=== PATIENT | male | born 1955 | race Caucasian/White ===

== ENCOUNTER 2019-11-21 11:29 | Inpatient (IN) | payer BC ==
[~2019-11-21] VITALS: Ht 205.7 cm; Wt 68.0 kg
[2019-11-21 12:13] LABS: BASOPHILS # (AUTO) 0.1 X10'3 (0-0.2); BASOPHILS % (AUTO) 0.3 % (0-1); EOSINOPHILS % (AUTO) 0 % (0-6); HEMATOCRIT 43.4 % (42.0-52.0); HEMOGLOBIN 14.5 g/dl (14.0-17.9); LYMPHOCYTES # (AUTO) 0.7 X10'3 (1.1-4.8); LYMPHOCYTES % (AUTO) 2.9 % (21-51); MEAN CORPUSCULAR HEMOGLOBIN 32.2 PG (27.0-31.0); MEAN CORPUSCULAR HGB CONC 33.5 g/dL (33.0-36.5); MEAN CORPUSCULAR VOLUME 96.3 FL (78-98); MEAN PLATELET VOLUME 8.3 FL (7.4-10.4); MONOCYTES # (AUTO) 0.6 X10'3 (0-0.9); MONOCYTES % (AUTO) 2.5 % (2-12); NEUTROPHILS # (AUTO) 21.2 X10'3 (1.8-7.7); NEUTROPHILS % (AUTO) 94.3 % (42-75); PLATELET COUNT 308 X10'3 (140-440); RED BLOOD COUNT 4.51 X10'6 (4.70-6.10); RED CELL DISTRIBUTION WIDTH 12.7 % (11.5-14.5); WHITE BLOOD COUNT 22.5 X10'3 (4.5-11.0)
[2019-11-21 12:29] LABS: ALANINE AMINOTRANSFERASE 22 U/L (12-78); ALBUMIN 3.5 G/DL (3.4-5.0); ALBUMIN/GLOBULIN RATIO 0.8 (1.1-1.5); ALKALINE PHOSPHATASE 79 IU/L (46-116); ANION GAP 11 (8-16); ASPARTATE AMINO TRANSFERASE 15 U/L (10-37); BILIRUBIN,TOTAL 2.2 MG/DL (0.1-1.0); BLOOD UREA NITROGEN 21 MG/DL (7-18); BUN/CREATININE RATIO 18.8 (5.4-32.0); CALCIUM 9.9 MG/DL (8.5-10.1); CHLORIDE 100 MMOL/L (99-107); CREATININE 1.12 MG/DL (0.60-1.10); GLUCOSE 147 MG/DL (70-104); LIPASE 138 U/L (73-393); POTASSIUM 3.7 MMOL/L (3.5-5.1); SODIUM 137 MMOL/L (135-145); TOTAL CARBON DIOXIDE 26.5 MMOL/L (24-32); eGFR 66 ML/MIN
[2019-11-21] MEDS ORDERED: metroNIDAZOLE-Flagyl 500mg/NS 100 ML IV STA (12:49)
[2019-11-21] MEDS ORDERED: CefTRIAXone 2gm/D5W 50ml 50 ML IV ONE (12:50)
[2019-11-21] MEDS ORDERED: normal saline 1000ML IV soln IVB ONE (12:50)
[2019-11-21] MEDS ORDERED: iohexol 300mg/ml 100ml inj. ONE (13:06)
[2019-11-21 13:54] LABS: CLARITY,URINE SLIGHTLY CLOUDY (Clear); COLOR,URINE AMBER (Yellow); UA COLLECTION TYPE VOIDED
[2019-11-21 13:57] LABS: BACTERIA,URINE 2+ /HPF (Neg); MUCUS STRANDS MODERATE /LPF (Neg); RBC,URINE 0-2 /HPF (0-2); SQUAMOUS EPITHELIAL CELL,UR FEW /LPF (FEW)
[2019-11-21] MEDS ORDERED: NO HOME MEDS (14:05)
[2019-11-21] MEDS ORDERED: LIDOcaine 2% 10ml TOPICAL JELLY (Urojet) MM ONE (14:25)
[2019-11-21] MEDS: normal saline 1000ml 1,000 ML IV SCH ×2 (14:41→23:36)
--- NOTE | 2019-11-21 14:42 | NUR ---
Patient requested to speak to provider prior to NG tube insertion per order, MARIA DEL CARMEN Hobson made aware.
[2019-11-21] MEDS ORDERED: morphine 2 MG/ML inj. syringe IV PRN (14:45)
[2019-11-21] MEDS ORDERED: potassium CL 10mEq/100ml bag 100 ML IV PRN ×2 (14:45)
[2019-11-21] MEDS ORDERED: potassium Cl 20 mEq SR tablet PO PRN ×2 (14:45)
[2019-11-21] MEDS ORDERED: magnesium 2GM in 50ml NS 50 ML IV PRN (14:45)
[2019-11-21] MEDS ORDERED: magnesium 4gm in 100ml NS 100 ML IV PRN (14:45)
[2019-11-21] MEDS ORDERED: ondansetron/PF 4mg/2ml inj IV PRN (14:45)
[2019-11-21] MEDS ORDERED: magnesium Cl slow-release 64mg tablet PO PRN (14:45)
--- NOTE | 2019-11-21 16:30 | NUR ---
Patient in room [facility]. I have received report from [place] MARTEL and had the opportunity to ask questions and assume patient care.
[2019-11-21 16:55] VITALS: BP 128/85
[2019-11-21] MEDS ORDERED: LORazepam 2 mg/ml vial IV PRN (17:30)
--- NOTE | 2019-11-21 18:46 | NUR ---
Problems reprioritized. Patient report given, questions answered & plan of care reviewed with Keysha MARTEL.
[2019-11-21 20:00] VITALS: BP 127/84
[2019-11-21] MEDS: K and/or MAG REPLACEMENT MC SCH (20:00)
[2019-11-21] MEDS: diatr meglu/diatrizoate 30ml oral sol.-(3 dose) bottle PO SCH (22:20)
--- NOTE | 2019-11-21 23:39 | NUR ---
PO contrast started tonight @2220. NG was turned off for at least 1 hr. Patient did well no nausea. He stated beginning of shift he passed gas and had some liquid stool in the bathroom. Will continue with care.
[2019-11-22] VITALS (16 sets, daily range): BP systolic 106–149; BP diastolic 51–91
[2019-11-22 06:07] LABS: BASOPHILS % (AUTO) 0.2 % (0-1); EOSINOPHILS % (AUTO) 0.1 % (0-6); HEMATOCRIT 38.8 % (42.0-52.0); HEMOGLOBIN 12.9 g/dl (14.0-17.9); LYMPHOCYTES # (AUTO) 0.9 X10'3 (1.1-4.8); LYMPHOCYTES % (AUTO) 7.1 % (21-51); MEAN CORPUSCULAR HEMOGLOBIN 32.6 PG (27.0-31.0); MEAN CORPUSCULAR HGB CONC 33.4 g/dL (33.0-36.5); MEAN CORPUSCULAR VOLUME 97.6 FL (78-98); MEAN PLATELET VOLUME 8.8 FL (7.4-10.4); MONOCYTES # (AUTO) 0.5 X10'3 (0-0.9); MONOCYTES % (AUTO) 4.2 % (2-12); NEUTROPHILS # (AUTO) 11.2 X10'3 (1.8-7.7); NEUTROPHILS % (AUTO) 88.4 % (42-75); PLATELET COUNT 249 X10'3 (140-440); RED BLOOD COUNT 3.97 X10'6 (4.70-6.10); WHITE BLOOD COUNT 12.7 X10'3 (4.5-11.0)
[2019-11-22 06:13] LABS: ALBUMIN 2.7 G/DL (3.4-5.0); ANION GAP 6 (8-16); BLOOD UREA NITROGEN 19 MG/DL (7-18); BUN/CREATININE RATIO 21.6 (5.4-32.0); CALCIUM 8.4 MG/DL (8.5-10.1); CHLORIDE 105 MMOL/L (99-107); CREATININE 0.88 MG/DL (0.60-1.10); GLUCOSE 100 MG/DL (70-104); MAGNESIUM 2.1 MG/DL (1.5-2.4); POTASSIUM 3.6 MMOL/L (3.5-5.1); SODIUM 140 MMOL/L (135-145); TOTAL CARBON DIOXIDE 28.7 MMOL/L (24-32); eGFR 87 ML/MIN
--- NOTE | 2019-11-22 06:32 | NUR ---
Problems reprioritized. Patient report given, questions answered & plan of care reviewed with Lenin RN.
[2019-11-22] MEDS: diatr meglu/diatrizoate 30ml oral sol.-(3 dose) bottle PO SCH ×2 (07:29→10:10)
[2019-11-22] MEDS: K and/or MAG REPLACEMENT MC SCH ×2 (08:00→20:25)
[2019-11-22] MEDS: normal saline 1000ml 1,000 ML IV SCH ×2 (09:28→20:13)
--- NOTE | 2019-11-22 16:12 | NUR ---
Nutrition consult received re: healthy diet to decrease problem of bowel obstruction. Attempted bedside visit however patient prepping for surgery today for exploratory lap and possible bowel resection. Will visit another time as able prior to patient's discharge. Addendum: 11/22/19 at [address] Amended: Links added.
[2019-11-22 17:03] LABS: PARTIAL THROMBOPLASTIN TIME 28 SECONDS (22-32)
[2019-11-22] MEDS ORDERED: sevoflurane 250ml liquid IH ONE (17:15)
[2019-11-22] MEDS ORDERED: midazolam 2 mg/2 ml injection ONE (17:21)
[2019-11-22] MEDS ORDERED: fentaNYL /PF 50mcg/ml 5ml ampule ONE (17:22)
[2019-11-22] MEDS ORDERED: LIDOcaine 2% (20mg/ml) 5ml vial ONE (17:45)
[2019-11-22] MEDS ORDERED: propofol inj 20 ML IV ONE (17:45)
[2019-11-22] MEDS ORDERED: dexamethasone sod phosphate 4mg/ml inj. ONE (17:45)
[2019-11-22] MEDS ORDERED: ceFOXitin 1000 MG inj ONE ×2 (17:45)
[2019-11-22] MEDS ORDERED: ondansetron/PF 4mg/2ml inj ONE (17:45)
[2019-11-22] MEDS ORDERED: rocuronium 10mg/ml inj IV ONE (17:45)
[2019-11-22] MEDS ORDERED: BUPIVACAINE liposomal/PF 13.3 MG/ML vial IM ONE (17:48)
[2019-11-22] MEDS ORDERED: clindamycin phosphate 150mg/ml inj. ONE (17:48)
[2019-11-22] MEDS ORDERED: ringers solution, lacted 1,000 ML IV SCH (17:48)
[2019-11-22] MEDS ORDERED: gentamicin 40 MG/1 ML inj ONE (17:48)
[2019-11-22] MEDS ORDERED: BUPIVAcaine/PF 2.5mg/ml (0.25%) 10ml vial ONE (17:48)
[2019-11-22] MEDS ORDERED: famotidine/PF 10 mg/ml inj IV ONE (17:48)
[2019-11-22] MEDS ORDERED: ondansetron/PF 4mg/2ml inj IV PRN (17:50)
[2019-11-22] MEDS ORDERED: acetaminophen 1,000mg/100ml IV 100 ML IV PRN (17:50)
[2019-11-22] MEDS ORDERED: morphine 2 MG/ML inj. syringe IV PRN (17:50)
[2019-11-22] MEDS ORDERED: meperidine/PF 25mg/ml syringe IV PRN ×2 (17:50)
[2019-11-22] MEDS ORDERED: proCHLORperazine 10 MG/2 ml inj IV PRN (17:50)
[2019-11-22] MEDS ORDERED: morphine 4 MG/ML inj SYRINge IV PRN (17:50)
[2019-11-22] MEDS ORDERED: hydrALAZINE 20mg/ml inj. IV PRN (17:50)
[2019-11-22] MEDS ORDERED: labetalol 20mg/4ml (5mg/ml) syringe IV PRN (17:50)
--- NOTE | 2019-11-22 18:38 | NUR ---
Problems reprioritized. Patient report given, questions answered & plan of care reviewed with Sydnie Fine RN.
--- NOTE | 2019-11-22 18:44 | NUR ---
Patient in room [facility]. I have received report from LeninRN, patient at the OR at the moment and had the opportunity to ask questions and assume patient care.
[2019-11-22] MEDS ORDERED: glycopyrrolate 0.2mg/ml inj ONE (19:09)
[2019-11-22] MEDS ORDERED: neostigmine methylsulfate 1 MG/ML 10ml vial ONE (19:09)
[2019-11-22] MEDS ORDERED: morphine 10mg/ml inj. ONE (19:13)
--- NOTE | 2019-11-22 19:20 | NUR ---
Received from OR via BED, accompanied by Anesthesiologist DR PULIDO-- and report given by Anesthesiolgist. PATIENT A&OX4, DENIES PAIN, V/S WNL, NEUROVASCULAR CHECKS INTACT, 20G PIV RUE, SCD ON, [place] DRESSING TO ABDOMEN CDI, F/C DRAINING CLEAR YELLOW URINE. NG TUBE TO RIGHT NARES TO LWS.
[2019-11-22] MEDS: meperidine/PF 25mg/ml syringe IV PRN ×2 (19:25→19:38)
--- NOTE | 2019-11-22 19:58 | NUR ---
pt just arrived on the floor, received report from analog ic design engineer
--- NOTE | 2019-11-22 20:00 | NUR ---
PATIENT A&OX4, DENIES PAIN, V/S WNL, NEUROVASCULAR CHECKS INTACT, 20G PIV RUE, SCD ON, [place] DRESSING TO ABDOMEN CDI, F/C DRAINING CLEAR YELLOW URINE. NG TUBE TO RIGHT NARES TO LWS. PATIENT TAKEN TO 350B WITH ALL BELONGINGS AND HOOKED UP TO MONITORS IN ROOM AND REPORT GIVEN TO RN WHO HAS TAKEN OVER PATIENT CARE.
[2019-11-22] MEDS: piperacillin/tazo 4.5gm/100ml 100 ML IV SCH (20:51)
[2019-11-22] MEDS: HYDROmorphone 1 mg/ml syringe IV PRN (20:52)
[2019-11-23] VITALS: BP 136/77
[2019-11-23] MEDS: piperacillin/tazo 4.5gm/100ml 100 ML IV SCH ×3 (01:02→16:33)
[2019-11-23] MEDS: normal saline 1000ml 1,000 ML IV SCH ×4 (02:00→17:37)
[2019-11-23 04:00] VITALS: BP 140/86
[2019-11-23 05:28] LABS: BASOPHILS % (AUTO) 0 % (0-1); EOSINOPHILS % (AUTO) 0 % (0-6); HEMATOCRIT 38.6 % (42.0-52.0); HEMOGLOBIN 12.6 g/dl (14.0-17.9); LYMPHOCYTES # (AUTO) 0.3 X10'3 (1.1-4.8); LYMPHOCYTES % (AUTO) 1.9 % (21-51); MEAN CORPUSCULAR HEMOGLOBIN 32.1 PG (27.0-31.0); MEAN CORPUSCULAR HGB CONC 32.6 g/dL (33.0-36.5); MEAN CORPUSCULAR VOLUME 98.5 FL (78-98); MEAN PLATELET VOLUME 8.4 FL (7.4-10.4); MONOCYTES # (AUTO) 0.6 X10'3 (0-0.9); MONOCYTES % (AUTO) 3.3 % (2-12); NEUTROPHILS % (AUTO) 94.8 % (42-75); PLATELET COUNT 246 X10'3 (140-440); RED BLOOD COUNT 3.92 X10'6 (4.70-6.10); RED CELL DISTRIBUTION WIDTH 12.8 % (11.5-14.5); WHITE BLOOD COUNT 16.9 X10'3 (4.5-11.0)
[2019-11-23 05:33] LABS: ALBUMIN 2.3 G/DL (3.4-5.0); ANION GAP 8 (8-16); BLOOD UREA NITROGEN 15 MG/DL (7-18); BUN/CREATININE RATIO 17.6 (5.4-32.0); CALCIUM 7.6 MG/DL (8.5-10.1); CHLORIDE 107 MMOL/L (99-107); CREATININE 0.85 MG/DL (0.60-1.10); GLUCOSE 138 MG/DL (70-104); MAGNESIUM 1.9 MG/DL (1.5-2.4); POTASSIUM 3.9 MMOL/L (3.5-5.1); SODIUM 142 MMOL/L (135-145); TOTAL CARBON DIOXIDE 26.8 MMOL/L (24-32); eGFR > 90 ML/MIN
[2019-11-23 06:30] VITALS: BP 151/84
--- NOTE | 2019-11-23 06:35 | NUR ---
Patient in room [facility]. I have received report from Sydnie Fine RN and had the opportunity to ask questions and assume patient care.
--- NOTE | 2019-11-23 06:46 | NUR ---
Problems reprioritized. Patient report given, questions answered & plan of care reviewed with TAHMINA Nieto.
[2019-11-23] MEDS: K and/or MAG REPLACEMENT MC SCH ×2 (07:12→20:00)
[2019-11-23] MEDS: HYDROmorphone 1 mg/ml syringe IV PRN ×2 (08:15→21:30)
[2019-11-23 11:28] VITALS: BP 132/80
[2019-11-23] MEDS: HYDROmorphone inj. 0.5 MG/0.5 ML DISP.SYRIN IV PRN (15:05)
[2019-11-23 18:00] VITALS: BP 149/83
--- NOTE | 2019-11-23 18:10 | NUR ---
Problems reprioritized. Patient report given, questions answered & plan of care reviewed with Sydnie Fine RN.
--- NOTE | 2019-11-23 18:44 | NUR ---
Patient in room [facility]. I have received report from TAHMINA Nieto and had the opportunity to ask questions and assume patient care. Addendum: 11/23/19 at 1844 by Adrianna Neff RN Amended: Links added.
[2019-11-23] MEDS: enoxaparin 40mg/0.4ml syringe SUBCUT SCH (20:35)
[2019-11-24] VITALS: BP 129/81
[2019-11-24] MEDS: piperacillin/tazo 4.5gm/100ml 100 ML IV SCH ×3 (00:14→16:02)
--- NOTE | 2019-11-24 06:20 | NUR ---
Patient in room [facility]. I have received report from Sydnie Fine RN and had the opportunity to ask questions and assume patient care.
[2019-11-24 06:30] VITALS: BP 141/86
--- NOTE | 2019-11-24 06:39 | NUR ---
Problems reprioritized. Patient report given, questions answered & plan of care reviewed with TAHMINA Nieto.
[2019-11-24] MEDS: K and/or MAG REPLACEMENT MC SCH ×2 (08:00→19:52)
[2019-11-24] MEDS ORDERED: acetaminophen w/codeine (30MG) #3 tablet PO PRN ×2 (08:00)
[2019-11-24 08:04] LABS: BASOPHILS % (AUTO) 0.2 % (0-1); EOSINOPHILS % (AUTO) 0.1 % (0-6); HEMATOCRIT 34.2 % (42.0-52.0); HEMOGLOBIN 11.3 g/dl (14.0-17.9); LYMPHOCYTES # (AUTO) 0.8 X10'3 (1.1-4.8); LYMPHOCYTES % (AUTO) 9.2 % (21-51); MEAN CORPUSCULAR HGB CONC 32.9 g/dL (33.0-36.5); MEAN CORPUSCULAR VOLUME 97.3 FL (78-98); MEAN PLATELET VOLUME 8.7 FL (7.4-10.4); MONOCYTES # (AUTO) 0.7 X10'3 (0-0.9); MONOCYTES % (AUTO) 7.3 % (2-12); NEUTROPHILS # (AUTO) 7.4 X10'3 (1.8-7.7); NEUTROPHILS % (AUTO) 83.2 % (42-75); PLATELET COUNT 243 X10'3 (140-440); RED BLOOD COUNT 3.51 X10'6 (4.70-6.10); RED CELL DISTRIBUTION WIDTH 12.7 % (11.5-14.5); WHITE BLOOD COUNT 8.9 X10'3 (4.5-11.0)
[2019-11-24 08:20] LABS: ALBUMIN 2.2 G/DL (3.4-5.0); ANION GAP 4 (8-16); BLOOD UREA NITROGEN 9 MG/DL (7-18); BUN/CREATININE RATIO 11.7 (5.4-32.0); CALCIUM 7.8 MG/DL (8.5-10.1); CHLORIDE 105 MMOL/L (99-107); CREATININE 0.77 MG/DL (0.60-1.10); GLUCOSE 96 MG/DL (70-104); MAGNESIUM 1.7 MG/DL (1.5-2.4); POTASSIUM 3.8 MMOL/L (3.5-5.1); SODIUM 139 MMOL/L (135-145); TOTAL CARBON DIOXIDE 29.9 MMOL/L (24-32); eGFR > 90 ML/MIN
[2019-11-24] MEDS: HYDROmorphone inj. 0.5 MG/0.5 ML DISP.SYRIN IV PRN ×3 (09:50→22:05)
--- NOTE | 2019-11-24 11:06 | NUR ---
Patient in room [facility]. I have received report from TAHMINA Nieto and had the opportunity to ask questions and assume patient care.
--- NOTE | 2019-11-24 11:10 | NUR ---
Problems reprioritized. Patient report given, questions answered & plan of care reviewed with TAHMINA Mcghee.
[2019-11-24 11:30] VITALS: BP 136/82
[2019-11-24] MEDS: normal saline 1000ml 1,000 ML IV SCH ×2 (13:13→19:44)
[2019-11-24 18:00] VITALS: BP 151/83
--- NOTE | 2019-11-24 18:18 | NUR ---
Problems reprioritized. Patient report given, questions answered & plan of care reviewed with TAHMINA Clements.
[2019-11-24] MEDS: lactobacillus rhamnosus 10,000 MMU CELLS/CAPSULE PO SCH (19:43)
[2019-11-24] MEDS: enoxaparin 40mg/0.4ml syringe SUBCUT SCH (19:43)
[2019-11-25] VITALS: BP 143/75
[2019-11-25] MEDS: piperacillin/tazo 4.5gm/100ml 100 ML IV SCH ×2 (00:15→09:30)
[2019-11-25 05:39] LABS: BASOPHILS % (AUTO) 0.4 % (0-1); EOSINOPHILS # (AUTO) 0.1 X10'3 (0-0.9); EOSINOPHILS % (AUTO) 0.8 % (0-6); HEMATOCRIT 34.2 % (42.0-52.0); HEMOGLOBIN 11.6 g/dl (14.0-17.9); LYMPHOCYTES % (AUTO) 12.6 % (21-51); MEAN CORPUSCULAR HEMOGLOBIN 32.5 PG (27.0-31.0); MEAN CORPUSCULAR HGB CONC 33.8 g/dL (33.0-36.5); MEAN CORPUSCULAR VOLUME 95.9 FL (78-98); MEAN PLATELET VOLUME 8.1 FL (7.4-10.4); MONOCYTES # (AUTO) 0.7 X10'3 (0-0.9); MONOCYTES % (AUTO) 8.3 % (2-12); NEUTROPHILS # (AUTO) 6.2 X10'3 (1.8-7.7); NEUTROPHILS % (AUTO) 77.9 % (42-75); PLATELET COUNT 267 X10'3 (140-440); RED BLOOD COUNT 3.57 X10'6 (4.70-6.10); RED CELL DISTRIBUTION WIDTH 12.6 % (11.5-14.5)
[2019-11-25 05:42] LABS: ALBUMIN 2.2 G/DL (3.4-5.0); ANION GAP 6 (8-16); BLOOD UREA NITROGEN 7 MG/DL (7-18); BUN/CREATININE RATIO 10.4 (5.4-32.0); CALCIUM 8.1 MG/DL (8.5-10.1); CHLORIDE 103 MMOL/L (99-107); CREATININE 0.67 MG/DL (0.60-1.10); GLUCOSE 86 MG/DL (70-104); MAGNESIUM 1.8 MG/DL (1.5-2.4); POTASSIUM 3.4 MMOL/L (3.5-5.1); SODIUM 138 MMOL/L (135-145); TOTAL CARBON DIOXIDE 29.2 MMOL/L (24-32); eGFR > 90 ML/MIN
[2019-11-25 06:30] VITALS: BP 138/90
--- NOTE | 2019-11-25 06:35 | NUR ---
Patient in room [facility]. I have received report from TAHMINA Clements and had the opportunity to ask questions and assume patient care.
[2019-11-25] MEDS: K and/or MAG REPLACEMENT MC SCH (07:20)
[2019-11-25] MEDS ORDERED: magnesium Cl slow-release 64mg tablet PO PRN (07:25)
[2019-11-25] MEDS ORDERED: potassium CL 10mEq/100ml bag 100 ML IV PRN (07:25)
[2019-11-25] MEDS ORDERED: potassium Cl 20 mEq SR tablet PO PRN (07:25)
[2019-11-25] MEDS ORDERED: magnesium 4gm in 100ml NS 100 ML IV PRN (07:25)
[2019-11-25] MEDS: normal saline 1000ml 1,000 ML IV SCH (09:30)
[2019-11-25] MEDS: lactobacillus rhamnosus 10,000 MMU CELLS/CAPSULE PO SCH (09:31)
[2019-11-25] MEDS: potassium Cl 20 mEq SR tablet PO PRN ×2 (09:52→14:01)
[2019-11-25] MEDS ORDERED: ACET-1059 PO (10:23)
[2019-11-25 11:00] VITALS: BP 155/84
--- NOTE | 2019-11-25 15:50 | NUR ---
DC inst provided to pt. IV DC'd, tip intact. All belongings sent w/pt. WC to front lobby.
== END 2019-11-25 15:49 | disposition home or self-care (01) | DRG 349 ==
LOC: ER 11:30 → ED HOLD 14:41 → SUR 3N 16:24
PROVIDERS: ADMIT Internal Medicine; ATTEND Internal Medicine
PROC: 0DBB4ZZ Excision of Ileum, Percutaneous Endoscopic Approach (ICD-10-PCS; 2019-11-22)
PROC: 0D9670Z Drainage of Stomach with Drainage Device, Via Natural or Artificial Opening (ICD-10-PCS; principal; 2019-11-22 17:15)
DX: K56.609 Unspecified intestinal obstruction, unspecified as to partial versus complete obstruction (principal); D72.829 Elevated white blood cell count, unspecified; K66.0 Peritoneal adhesions (postprocedural) (postinfection)
CPT/HCPCS: 96365; 96367; 99285; Z7506; Z7508; 36415; 71045; 74018; 74176; 74177; 80048; 80053; 81001; 82948; 83605; 83690; 83735; 84145; 85025; 85610; 85730; 87040; 87070; 87075; 87077; 87081; 87088; 87186; 93005; A4215; A4618; A7000; C1758; C9290; G0378; J0131; J0694; J0696; J1100; J1170; J1580; J1650; J2001; J2175; J2250; J2270; J2405; J2543; J2704; J2710; J3010; J3490; J7030; J7120; Q9963; Q9967

== ENCOUNTER 2022-09-07 10:30 | Emergency (ER) | payer BC, MEDICAID ==
[~2022-09-07] VITALS: Ht 175.3 cm; Wt 65.0 kg
[2022-09-07 10:52] VITALS: BP 144/96
[2022-09-07] MEDS ORDERED: pramoxine 1% foam spray 15gm TP STA (13:55)
[2022-09-07] MEDS ORDERED: PHEN1SUP96 PR (14:56)
[2022-09-07] MEDS ORDERED: PSYL575P22 PO (14:56)
== END 2022-09-07 15:22 | disposition home or self-care (01) ==
LOC: ER 10:30
DX: K64.8 Other hemorrhoids (principal); F41.9 Anxiety disorder, unspecified
CPT/HCPCS: 99284